=== PATIENT | female | born 1945 | race Caucasian/White ===

== ENCOUNTER 2022-03-14 14:31 | Emergency (ER) | payer MEDICARE, SELFPAY ==
[2022-03-14 14:48] VITALS: BP 196/91; PULSE 89; RESP 16; TEMP 38; O2SAT 97
--- NOTE | 2022-03-14 15:00 | ED.URI ---
HPI - URI/Sore Throat General Chief Complaint: Upper Respiratory Infection Stated Complaint: Feeling Hot Time Seen by Provider: 03/14/22 14:55 Source: patient Mode of arrival: ambulatory Limitations: no limitations History of Present Illness HPI Narrative: Bree is a 77-year-old female patient presenting to clinic today with complaints of feeling flushed and hot this morning. She reports that she was sitting on the couch with the blanket on her in the fan was on and she all the sudden felt very flushed and feeling hot. She reports that this is not normal for her so she did take her temperature and it was normal at that time. states that she initially went to [facility] and they were did not have an appointment for her until 430 so she decided to cancel that appointment and come to the [facility]. Reports that her symptoms have improved and she is no longer feeling flushed or hot. She denies having a headache,lightheadedness,dizziness, nausea, vomiting, shortness of breath, or chest pain Related Data Home Medications Medication Instructions Recorded Confirmed rosuvastatin 40 mg tablet mg 03/14/22 Allergies Allergy/AdvReac Type Severity Reaction Status Date / Time Sulfa (Sulfonamide Allergy Unknown UNKNOWN, Verified 03/14/22 14:38 Antibiotics) CHILD Review of Systems Review of Systems: Pertinent positives per HPI. Patient denies any fever, chills, rash, headache, visual changes, dizziness, cough, runny nose, sore throat, shortness of breath, chest pain, palpitations, nausea, vomiting, diarrhea, constipation, abdominal pain, or any urinary issues. PMFSH Comments At the time of my signature, I reviewed and agree with the nursing past medical, surgical, social, and family history. There is no relevant family history pertinent to the patient complaint. Course Course Emergency Course: Portions of this record may have been created with voice recognition software. Level of Care: Express Care Visit Vital Signs Vital signs: Vital Signs Temperature 38.0 C H 03/14/22 14:48 Pulse Rate 89 03/14/22 14:48 Respiratory Rate 16 03/14/22 14:48 Blood Pressure 196/91 H 03/14/22 14:48 Pulse Oximetry 97 03/14/22 14:48 Oxygen Delivery Room Air 03/14/22 14:48 Temperature 38.0 C H 03/14/22 14:48 Pulse Rate 89 03/14/22 14:48 Respiratory Rate 16 03/14/22 14:48 Blood Pressure 196/91 H 03/14/22 14:48 Pulse Oximetry 97 03/14/22 14:48 Oxygen Delivery Room Air 03/14/22 14:48 Vital signs reviewed MDM - URI/Sore Throat MDM Narrative Medical decision making narrative: At the time of visit patient is resting comfortably in the exam table. Patient's blood pressure is 196/91 in the clinic today. She reports she took a blood pressure pill this morning however there is no blood pressure medication on her med list. Contacted her pharmacy and the only medication she takes on a regular basis is rosuvastatin. Patient contacted her PCP and they only have rosuvastatin as her medication as well. Recommend patient go to the ER for hypertension crisis and risk and benefits explained to the patient and patient would like to just go home instead. AMA was completed and signed- patient voiced understanding. Differential Diagnosis Differential diagnosis: Likely other ( hypertensive urgency) Discharge Plan Discharge Clinical Impression: Hypertensive urgency Patient Disposition: Left Against Medical Advice Condition: Guarded Prognosis Instructions: Antibiotic Form, Hypertensive Crisis (ED) Additional Instructions: Recommend going to the hospital today for further workup regarding hypertensive urgency Risk and benefits were reviewed with the patient and AMA was signed Follow-up with your PCP as soon as possible Prescriptions: No Action rosuvastatin 40 mg tablet Follow-up/Referrals: PHYSICIAN,NURSE STAFF INDUSTRIAL [Primary Care Provider] - Time of Disposition: 15:
--- NOTE | 2022-03-14 15:11 | PC.NURSE ---
[facility] pharmacy called to verify medications, and only cholest med. found per pharm., supervisor glycerin spoke with pt in regard to f/u in er for elevated bp, but stated would prefer to call pmd office to clarify medication. is aware of bp.
--- NOTE | 2022-03-14 15:23 | PC.NURSE ---
was able to contact pmd and is only prescribed rusovastatin for cholest. 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
--- NOTE | 2022-03-14 15:25 | PC.NURSE ---
silicator at bedside and pt aware of recommendation to f/u in er.
== END 2022-03-14 15:38 | disposition left against medical advice (07) ==
PROVIDERS: Emergency Provider Nurse Practitioner Family
DX: I16.0 Hypertensive urgency (principal); E78.00 Pure hypercholesterolemia, unspecified; Z85.3 Personal history of malignant neoplasm of breast
CPT/HCPCS: 99211; G0463

== ENCOUNTER 2022-11-21 14:07 | Emergency (ER) | payer MEDICARE, SELFPAY ==
[2022-11-21 14:19] VITALS: BP 183/68; PULSE 78; RESP 16; TEMP 37.1; O2SAT 97
--- NOTE | 2022-11-21 14:22 | ED.EAR ---
HPI - Ear Problem General Chief complaint: Ear Stated complaint: Ears Irritation Source: patient Mode of arrival: ambulatory Limitations: no limitations History of Present Illness HPI Narrative: 77-year-old female presents for complaint of bilateral ear with muffled hearing for a few days. Denies drainage, pain, tinnitus, dizziness, n/v/d/f/c. Not taking anything for symptoms. Complaint: ear pain Related Data Home Medications Medication Instructions Recorded Confirmed rosuvastatin 40 mg tablet 40 mg PO DAILY 03/14/22 11/21/22 Allergies Allergy/AdvReac Type Severity Reaction Status Date / Time Sulfa (Sulfonamide Allergy Unknown UNKNOWN, Verified 11/21/22 14:14 Antibiotics) CHILD Review of Systems Review of Systems: CONSTITUTIONAL: Denies malaise, chills, or fever. EYES: Denies visual changes, redness, or discharge. ENT: Denies rhinorrhea, congestion, sinus pain, and sore throat. Reports ear irritation CARDIOVASCULAR: Denies chest pain, palpitations, or edema. RESPIRATORY: Denies cough or dyspnea. GASTROINTESTINAL: Denies abdominal pain, nausea, vomiting, diarrhea SKIN: Denies rash or itching. MUSCULOSKELETAL: Denies myalgia. NEUROLOGIC: Denies headache. All systems reviewed & are unremarkable except as noted in HPI and below PMFSH Past Medical History Medical History (Updated 11/21/22 @ 14:40 by Tasha Diaz APRN) No pertinent past medical history Comments At time of signature, agree with nursing past medical, surgical, social and family history. There is no relevant family history pertinent to the presenting complaint Exam Narrative: GENERAL: Well-appearing HEAD: Normocephalic EYES: conjunctivae clear ENT: Nares clear. Mucous membranes moist. TMs pearly michelle with normal light reflex and normal canals bilaterally; no tragal tenderness. Oropharynx not erythematous without lesions. NECK: Supple. No lymphadenopathy CHEST: Clear to auscultation, breath sounds equal. HEART: Regular rate and rhythm. No murmur heard. SKIN: Warm, dry, no rash. NEURO: Alert and oriented x3. PSYCH: anxious, talkative Course Course Emergency Course: Patient is aware of diagnosis, understands and agrees to treatment plan. Anticipatory guidance given. Patient agrees to follow-up as directed and is aware of reasons to seek care at the emergency department. Portions of this record may have been created with voice recognition software Level of Care: Express Care Visit Vital Signs Vital signs: Reviewed Medical Decision Making MDM Narrative Medical decision making narrative: Discussed physical exam findings, no impacted cerumen or infection noted. Advised supportive measures and signs/symptoms to go to the ER. Patient is appropriate for outpatient treatment and follow-up. Differential Diagnosis Differential Diagnosis: Coronavirus, strep pharyngitis, allergic rhinitis, upper respiratory tract infection, sinusitis, rhinosinusitis, nasopharyngitis, viral pharyngitis, otitis media, otitis externa, eustachian tube dysfunction, foreign body, cerumen impaction. Discharge Plan Discharge Clinical Impression: Decreased hearing of both ears Patient Disposition: Home, Self-Care Condition: Stable Instructions: Earache (ED) Additional Instructions: Recommend antihistamine such as Benadryl, Zyrtec or Carline for ear fullness, muffled hearing, pain, tinnitus, reduced hearing, or problems with balance Flonase nasal spray, 1 spray in each nostril once daily until symptoms improve Tylenol 1000mg every 8 hours as needed to reduce fever, pain Please schedule a follow-up visit with your personal physician for further evaluation and treatment within 3-5days. If your symptoms persist, change or worsen significantly, go to the emergency department for further evaluation. Prescriptions: No Action rosuvastatin 40 mg tablet 40 mg PO DAILY Follow-up/Referrals: Carl,MD Shiv [Primary Ca
== END 2022-11-21 14:41 | disposition home or self-care (01) ==
PROVIDERS: Emergency Provider Nurse Practitioner Family; PCP Internal Medicine
DX: H91.93 Unspecified hearing loss, bilateral (principal); E78.00 Pure hypercholesterolemia, unspecified; I10 Essential (primary) hypertension; Z85.3 Personal history of malignant neoplasm of breast
CPT/HCPCS: 99211; G0463